=== PATIENT | male | born 1985 | race Caucasian/White ===

== ENCOUNTER 2023-05-13 22:36 | Emergency (ER) | payer MEDICAID ==
[~2023-05-13] VITALS: Ht 182.9 cm; Wt 86.2 kg
[2023-05-13 23:00] VITALS: BP 132/98; PULSE 77; RESP 18; TEMP 96.9; O2SAT 99
[2023-05-14 01:33] LABS: AMPHETAMINE, URINE NEGATIVE ng/ml (NEG <=1000); BARBITURATE, URINE NEGATIVE ng/ml (NEG <=200); BENZODIAZEPINE, URINE NEGATIVE ng/mL (NEG <=200); CANNABINOID, URINE POSITIVE ng/mL (NEG <=50); COCAINE, URINE NEGATIVE ng/mL (NEG <=300); OPIATE, URINE NEGATIVE ng/mL (NEG <=2000); PHENCYCLIDINE SCREEN,URINE NEGATIVE ng/mL (NEG <=25)
[2023-05-14] MEDS ORDERED: HYDROcodone/APAP 5/325 MG 1 TAB TAB PO ONE (02:10)
[2023-05-14] MEDS ORDERED: ACET-10509 PO (02:15)
[2023-05-14 02:20] VITALS: BP 132/98; PULSE 77; RESP 18; TEMP 96.9; O2SAT 99
[2023-05-14] MEDS ORDERED: DOXY-690 PO (04:25)
== END 2023-05-14 02:36 | disposition home or self-care (01) ==
LOC: MED 22:36
DX: R55 Syncope and collapse (principal); R07.89 Other chest pain; R05.9 Cough, unspecified; R11.2 Nausea with vomiting, unspecified; W19.XXXA Unspecified fall, initial encounter; Y93.01 Activity, walking, marching and hiking; Y92.481 Parking lot as the place of occurrence of the external cause; Y99.8 Other external cause status
CPT/HCPCS: 71045; 80305; 93005; 99285; Q0092

== ENCOUNTER 2023-05-15 22:07 | Emergency (ER) | payer MEDICAID ==
[~2023-05-15] VITALS: Ht 185.4 cm; Wt 86.2 kg
[~2023-05-15 22:07] MED LIST: ACET-10509 PO; DOXY-690 PO
[2023-05-15 22:20] VITALS: BP 148/83; PULSE 88; RESP 16; TEMP 98.6; O2SAT 100
--- NOTE | 2023-05-15 22:25 | NUR ---
TO LOBBY FOLLOWING TRIAGE
--- NOTE | 2023-05-15 23:48 | NUR ---
PT AMBULATED TO BED 07
--- NOTE | 2023-05-16 00:22 | NUR ---
37 Y/O M BIB SELF FROM HOME C/C FEELING WEAK AND COUGHING UP BLOOD WITH NV STATED BY PT WITH L FLANK PAIN X3DAYS. PT DENIES HEADACHES. PT A&OX4, SKIN INTACT, AMBULATORY. PMH- PT DENIES NKA
[2023-05-16 00:55] LABS: APPEARANCE,URINE SL CLOUDY (CLEAR); BILIRUBIN,URINE 1+ (NEGATIVE); BLOOD, URINE TRACE-I (NEGATIVE); COLOR,URINE RED (YELLOW); LEUKOCYTE ESTERASE ,URINE NEGATIVE (NEGATIVE); NITRITE, URINE NEGATIVE (NEGATIVE); UGLUCOSE NEGATIVE (NEGATIVE)
[2023-05-16] MEDS ORDERED: ACETAMINOPHEN 325 MG TAB PO ONE (01:10)
[2023-05-16 01:11] LABS: RBC,URINE 0-5 /HPF (0-5); URINE AMORPHOUS URATE 2+ /HPF (None Seen)
--- NOTE | 2023-05-16 01:15 | NUR ---
CALL LIGHT WITHIN REACH, WAITING ON ORDERS FROM DOCTOR
[2023-05-16 01:20] LABS: BARBITURATE, URINE NEGATIVE ng/ml (NEG <=200); BENZODIAZEPINE, URINE NEGATIVE ng/mL (NEG <=200); CANNABINOID, URINE POSITIVE ng/mL (NEG <=50); COCAINE, URINE NEGATIVE ng/mL (NEG <=300); OPIATE, URINE NEGATIVE ng/mL (NEG <=2000); PHENCYCLIDINE SCREEN,URINE NEGATIVE ng/mL (NEG <=25)
[2023-05-16 04:53] VITALS: O2SAT 100
--- NOTE | 2023-05-16 06:00 | NUR ---
Patient does not wish to proceed with medical care recommended by DR. CORADO. Patient given information related to possible complications, up to and including , which could occur as a result of leaving hospital at this time. Patient verbalizes understanding of risks involved leaving against medical advice. Patient has signed AMA form.
== END 2023-05-16 06:00 | disposition left against medical advice (07) ==
LOC: MED 22:07
DX: M94.0 Chondrocostal junction syndrome [Tietze] (principal); N39.0 Urinary tract infection, site not specified; R07.89 Other chest pain; Z79.899 Other long term (current) drug therapy; Z79.2 Long term (current) use of antibiotics
CPT/HCPCS: 71250; 80305; 81001; 99284